=== PATIENT | male | born 1990 | race Caucasian/White ===

== ENCOUNTER 2019-02-26 09:52 | Emergency (ER) | payer MEDICAID ==
[~2019-02-26] VITALS: Ht 188 cm; Wt 111.4 kg
[2019-02-26 10:05] VITALS: BP 137/95
[2019-02-26] MEDS ORDERED: SULF1TAB49 PO (10:56)
[2019-02-26] MEDS ORDERED: CEPH500C5 PO (10:56)
[2019-02-26] MEDS ORDERED: LIDOcaine 1% W/epiNEPHrine 1:100,000 20ml vial SQ ONE (11:00)
[2019-02-26] MEDS ORDERED: TRAM50TA2 PO (11:41)
== END 2019-02-26 11:51 | disposition home or self-care (01) ==
LOC: ER 09:52
DX: L02.01 Cutaneous abscess of face (principal); Z79.899 Other long term (current) drug therapy
CPT/HCPCS: 10060; 99283

== ENCOUNTER 2019-08-26 15:07 | Emergency (ER) | payer MEDICAID ==
[~2019-08-26] VITALS: Ht 188 cm; Wt 113.6 kg
[2019-08-26 15:31] VITALS: BP 135/95
[2019-08-26] MEDS ORDERED: ALBU8HFA PO (15:41)
[2019-08-26] MEDS ORDERED: DEXA6TAB6 PO (15:41)
== END 2019-08-26 16:14 | disposition home or self-care (01) ==
LOC: ER 15:07
DX: J40 Bronchitis, not specified as acute or chronic (principal); J06.9 Acute upper respiratory infection, unspecified; B97.89 Other viral agents as the cause of diseases classified elsewhere; Z20.828 Contact with and (suspected) exposure to other viral communicable diseases; Z79.899 Other long term (current) drug therapy
CPT/HCPCS: 71045; 99283